=== PATIENT | female | born 1950 | race Caucasian/White ===

== ENCOUNTER 2021-02-16 06:40 | Day surgery (SDC) | payer MEDICARE ==
[2021-02-09 16:21] LABS: BASOPHILS % (AUTO) 0.4 % (0-1); EOSINOPHILS % (AUTO) 0.6 % (0-6); LYMPHOCYTES # (AUTO) 1.7 X10'3 (1.1-4.8); LYMPHOCYTES % (AUTO) 49.2 % (21-51); MEAN CORPUSCULAR HGB CONC 34.9 g/dL (33.0-36.5); MEAN PLATELET VOLUME 7.3 FL (7.4-10.4); MONOCYTES # (AUTO) 0.3 X10'3 (0-0.9); NEUTROPHILS # (AUTO) 1.4 X10'3 (1.8-7.7); NEUTROPHILS % (AUTO) 40.8 % (42-75); PRE OP HEMATOCRIT 34.5 % (35.0-45.0); PRE OP PLATELET COUNT 193 X10'3 (140-440); RED BLOOD COUNT 3.25 X10'6 (4.20-5.60); RED CELL DISTRIBUTION WIDTH 11.8 % (11.5-14.5)
[2021-02-09 16:24] LABS: ALBUMIN 3.7 G/DL (3.4-5.0); ALBUMIN/GLOBULIN RATIO 1.2 (1.1-1.5); ALKALINE PHOSPHATASE 66 IU/L (46-116); BLOOD UREA NITROGEN 17 MG/DL (7-18); BUN/CREATININE RATIO 26.6 (6.6-38.0); CALCIUM 8.6 MG/DL (8.5-10.1); CHLORIDE 107 MMOL/L (99-107); CREATININE 0.64 MG/DL (0.40-0.90); PRE OP ALT 22 U/L (30-65); PRE OP ANION GAP 11 (8-16); PRE OP AST 20 U/L (10-37); PRE OP BILIRUB, TOTAL 0.3 MG/DL (0.0-1.0); PRE OP GLUCOSE 91 MG/DL (70-104); PRE OP SODIUM 143 MMOL/L (135-145); TOTAL PROTEIN 6.9 G/DL (6.4-8.2); eGFR > 90 ML/MIN
[2021-02-09 16:25] LABS: PRE OP POTASSIUM 3.2 MMOL/L (3.4-5.1)
[2021-02-16] VITALS (20 sets, daily range): BP systolic 92–155; BP diastolic 24–137
[~2021-02-16] VITALS: Ht 160 cm; Wt 53.0 kg
[~2021-02-16 06:40] MED LIST: ACET-2971 PO; CELE-85 PO; CLON-369 PO; ECHI80CA PO; ERGO400C PO; ESOM40CA54 PO; FOLI0.4T14 PO; GABA-530 PO; IBUP-24 PO; KRIL1CAP21 PO; PREN-125 PO; SULF500T46 PO; TRAM50TA2 PO; VANCOMYCIN INJ 1000 MG in NORMAL SALINE 250ml IV.SOLN IV ONE; VITA-332; VITA400C67 PO; acetaminophen 325mg tablet PO ONE; cefazolin/dext.iso 2gm/100ml IV ONE; celeCOXIB 100mg capsule PO ONE; famotidine 20mg tablet PO ONE; gabapentin 300mg capsule PO ONE; metoclopramide 5 mg/ml inj IV ONE; oxyCODONE SR 10mg (sust. release) tab -2 tabs (20mg) PO ONE; tranexamic acid 1gm/0.7% sal. 100 ML IV ONE
[2021-02-16] MEDS ORDERED: diphenhydrAMINE 25mg capsule PO PRN ×2 (06:55)
[2021-02-16] MEDS ORDERED: acetaminophen 325mg tablet PO PRN (06:55)
[2021-02-16] MEDS ORDERED: HYDROmorphone inj. 0.5 MG/0.5 ML DISP.SYRIN IV PRN (06:55)
[2021-02-16] MEDS ORDERED: bisacodyl 10mg suppository rectal RC PRN (06:55)
[2021-02-16] MEDS ORDERED: ondansetron/PF 4mg/2ml inj IV PRN ×2 (06:55→10:35)
[2021-02-16] MEDS ORDERED: clonazePAM 0.5mg tablet PO PRN (06:55)
[2021-02-16] MEDS ORDERED: magnesium hydroxide 30ml (MOM) UD suspension PO PRN (06:55)
[2021-02-16] MEDS ORDERED: HYDROcodone/acetaminophen 10/325mg tab PO PRN (06:55)
[2021-02-16] MEDS: ringers solution, lacted 1,000 ML IV SCH ×3 (07:15→18:45)
[2021-02-16] MEDS ORDERED: vancomycin/NS 1 GM ADD-VANTAGE 250 ML IV SCH (08:00)
[2021-02-16 08:05] LABS: ISTAT ANION GAP 12 (8-12); ISTAT BUN 13 mg/dL (7-18); ISTAT CL 104 mmol/L (99-107); ISTAT CREATININE 0.5 mg/dL (0.6-1.1); ISTAT GLUCOSE 111 mg/dL (70-105); ISTAT HGB 11.6 g/dl (12.0-16.0); ISTAT Hct 34 %PCV (35-48); ISTAT IONIZED CALCIUM 1.23 mmol/L (1.03-1.32); ISTAT K 3.8 mmol/L (3.5-5.1); ISTAT NA 142 mmol/L (135-145); ISTAT TOTAL CO2 26 mmol/L (24-32); ISTAT eGFR > 90 ML/MIN
[2021-02-16] MEDS ORDERED: ketorolac trometh. 30mg/ml inj. ONE (08:43)
[2021-02-16] MEDS ORDERED: cloNIDine hcl/PF 100mcg/ml inj ONE (08:44)
[2021-02-16] MEDS ORDERED: epiNEPHrine 1 mg/ml inj ONE (08:44)
[2021-02-16] MEDS ORDERED: vancomycin 1,000mg inj ONE (08:44)
[2021-02-16] MEDS ORDERED: ROPIVAcaine 0.5% (5mg/ml) 30ml vial ONE (08:44)
[2021-02-16] MEDS ORDERED: MIDAZolam 1 MG/ML 5ML VIAL ONE (09:31)
[2021-02-16] MEDS ORDERED: fentaNYL/PF 50MCG/1 ML 2ML syringe ONE (09:31)
[2021-02-16] MEDS ORDERED: propofol inj 20 ML IV ONE (10:34)
[2021-02-16] MEDS ORDERED: proCHLORperazine 10 MG/2 ml inj IV PRN (10:35)
[2021-02-16] MEDS ORDERED: ringers solution, lacted 1,000 ML IV SCH (10:35)
[2021-02-16] MEDS ORDERED: morphine 2 MG/ML inj. syringe IV PRN (10:35)
[2021-02-16] MEDS ORDERED: meperidine/PF 25mg/ml syringe IV PRN ×3 (10:35)
[2021-02-16] MEDS ORDERED: morphine 4 MG/ML inj SYRINge IV PRN (10:35)
--- NOTE | 2021-02-16 10:55 | NUR ---
Received from OR via , accompanied by Anesthesiologist DR FORD and report given by Anesthesiolgist. PT PRESENTS WITH 20G RIGHT QAC, LEFT HIP DRESSING DRY AND INTACT WITH NORM DRESSING, VSS. Addendum: 02/16/21 at 1110 by Angie Jarrett RN, RN Amended: Links added.
[2021-02-16] MEDS ORDERED: NORMAL SALINE IV ONE (12:00)
[2021-02-16] MEDS ORDERED: TRANEXAMIC ACID IV ONE (12:00)
--- NOTE | 2021-02-16 12:11 | NUR ---
RECEIVED REPORT FROM LEENA NICHOLSON IN RECOVERY. PT GOING TO ROOM [id number]
--- NOTE | 2021-02-16 12:25 | NUR ---
PT TO FLOOR VIA HOSPITAL BED WITH [facility]. [facility] ST[facility] AT BEDSIDE TO ACCEPT PT. Addendum: 02/16/21 at 1226 by Angie Jarrett RN RN Amended: Links added.
[2021-02-16] MEDS: HYDROcodone/acetaminophen 10/325mg tab PO PRN ×2 (12:59→19:18)
[2021-02-16] MEDS: potassium cl 20mEq in 1/2 NS 1,000 ML IV SCH ×3 (14:55→22:55)
[2021-02-16] MEDS: HYDROmorphone 1 mg/ml syringe IV PRN ×2 (15:04→21:09)
[2021-02-16] MEDS: ceFAZolin/D5W- 1GM premix 50 ML IV SCH (16:18)
[2021-02-16] MEDS: gabapentin 100mg capsule PO SCH (16:18)
[2021-02-16] MEDS: multivitamins, therapeutics tablet PO SCH (18:00)
[2021-02-16] MEDS: aspirin 325mg tablet PO SCH (18:00)
--- NOTE | 2021-02-16 18:52 | NUR ---
Problems reprioritized. Patient report given, questions answered & plan of care reviewed with LEENA SOTO.
[2021-02-16] MEDS: ascorbic acid 500mg tablet PO SCH (19:17)
[2021-02-16] MEDS: sulfaSALAZINE 500 MG tablet PO SCH (19:21)
--- NOTE | 2021-02-16 19:36 | NUR ---
pt refusing knee brace at this time. "I'm in too much pain, i have to bend my knee." placed pillow b/w legs to prevent crossing when sleeping. will retry when pain controlled
[2021-02-16] MEDS ORDERED: sennosides 8.6mg tablet PO SCH (21:00)
[2021-02-17] MEDS ORDERED: vancomycin/NS 1 GM ADD-VANTAGE 250 ML IV ONE (00:10)
[2021-02-17] MEDS: HYDROcodone/acetaminophen 10/325mg tab PO PRN ×3 (00:15→09:05)
[2021-02-17] MEDS: gabapentin 100mg capsule PO SCH ×2 (00:15→09:03)
[2021-02-17] MEDS: ceFAZolin/D5W- 1GM premix 50 ML IV SCH (00:15)
[2021-02-17 02:00] VITALS: BP 136/37
--- NOTE | 2021-02-17 05:47 | NUR ---
pt finally agreed to have knee brace on. she will ask MD if she can keep it off.
[2021-02-17 06:08] LABS: BASOPHILS % (AUTO) 0.3 % (0-1); EOSINOPHILS % (AUTO) 0.6 % (0-6); HEMATOCRIT 30.4 % (35.0-45.0); HEMOGLOBIN 10.5 g/dl (12.0-16.0); LYMPHOCYTES % (AUTO) 26.1 % (21-51); MEAN CORPUSCULAR HEMOGLOBIN 36.8 PG (27.0-31.0); MEAN CORPUSCULAR HGB CONC 34.7 g/dL (33.0-36.5); MEAN PLATELET VOLUME 7.7 FL (7.4-10.4); MONOCYTES # (AUTO) 0.3 X10'3 (0-0.9); MONOCYTES % (AUTO) 9.1 % (2-12); NEUTROPHILS # (AUTO) 2.4 X10'3 (1.8-7.7); NEUTROPHILS % (AUTO) 63.9 % (42-75); PLATELET COUNT 176 X10'3 (140-440); RED BLOOD COUNT 2.86 X10'6 (4.20-5.60); RED CELL DISTRIBUTION WIDTH 11.9 % (11.5-14.5); WHITE BLOOD COUNT 3.8 X10'3 (4.5-11.0)
[2021-02-17 06:26] LABS: ANION GAP 7 (8-16); CHLORIDE 108 MMOL/L (99-107); POTASSIUM 3.6 MMOL/L (3.5-5.1); SODIUM 140 MMOL/L (135-145); TOTAL CARBON DIOXIDE 24.9 MMOL/L (24-32)
--- NOTE | 2021-02-17 06:31 | NUR ---
reported to days. noted pt painful, not excited about getting up with PT. madelyn may not be working for her. noted to day RN to monitor effectivness
--- NOTE | 2021-02-17 06:34 | NUR ---
Patient in room ORTHO 4024. I have received report from Arya STERN and had the opportunity to ask questions and assume patient care.
[2021-02-17] MEDS: potassium cl 20mEq in 1/2 NS 1,000 ML IV SCH (06:55)
[2021-02-17 06:59] VITALS: BP 138/47
[2021-02-17] MEDS ORDERED: pantoprazole 40mg Tablet.DR PO SCH (07:30)
[2021-02-17] MEDS: aspirin 325mg tablet PO SCH (09:03)
[2021-02-17] MEDS: ascorbic acid 500mg tablet PO SCH (09:04)
[2021-02-17] MEDS: multivitamins, therapeutics tablet PO SCH (09:04)
[2021-02-17] MEDS: sulfaSALAZINE 500 MG tablet PO SCH (09:06)
[2021-02-17 10:50] VITALS: BP 159/51
--- NOTE | 2021-02-17 11:49 | NUR ---
Patient discharged to home, 18 gauge IV removed from right antecubital, no s/s of phlebitis and cannula intact. DC instructions given to both patient and significant other. Discharged in wheelchair to private vehicle with no complications.
[2021-02-17] MEDS ORDERED: celeCOXIB 100mg capsule PO SCH (20:00)
== END 2021-02-17 11:30 | disposition home or self-care (01) ==
LOC: PAS 06:40 → ORTHO 4S 06:52 → PAS 02-17 11:30
PROVIDERS: ATTEND Orthopaedic Surgery
DX: M16.12 Unilateral primary osteoarthritis, left hip (principal); G43.909 Migraine, unspecified, not intractable, without status migrainosus; F41.9 Anxiety disorder, unspecified; Z20.822 Contact with and (suspected) exposure to COVID-19; Z86.73 Personal history of transient ischemic attack (TIA), and cerebral infarction without residual deficits; Z87.891 Personal history of nicotine dependence; Z72.89 Other problems related to lifestyle; Z79.899 Other long term (current) drug therapy
CPT/HCPCS: 27130; 36415; 72170; 80047; 80051; 80053; 82948; 85025; 86885; 86900; 86901; 87081; 97110; 97116; 97161; 97530; C1776; J0171; J0690; J0735; J1170; J1885; J2250; J2704; J2765; J3010; J3370; J7120; U0003; U0005; A7000; G0378; J2795; J3480

== ENCOUNTER 2022-07-22 07:28 | Emergency (ER) | payer MEDICARE ==
[~2022-07-22] VITALS: Ht 160 cm; Wt 62.0 kg
[~2022-07-22 07:28] MED LIST changes: -ACET-2971 PO; -IBUP-24 PO; -TRAM50TA2 PO; -VANCOMYCIN INJ 1000 MG in NORMAL SALINE 250ml IV.SOLN IV ONE; -acetaminophen 325mg tablet PO ONE; -cefazolin/dext.iso 2gm/100ml IV ONE; -celeCOXIB 100mg capsule PO ONE; -famotidine 20mg tablet PO ONE; -gabapentin 300mg capsule PO ONE; -metoclopramide 5 mg/ml inj IV ONE; -oxyCODONE SR 10mg (sust. release) tab -2 tabs (20mg) PO ONE; -tranexamic acid 1gm/0.7% sal. 100 ML IV ONE
[2022-07-22 08:21] VITALS: BP 149/77
[2022-07-22] MEDS ORDERED: ondansetron 4mg rapidly disintigrating tab PO ONE (08:45)
[2022-07-22] MEDS ORDERED: acetaminophen 325mg tablet PO ONE (08:45)
[2022-07-22] MEDS ORDERED: HYDROcodone/acetaminophen 10/325mg tab PO ONE (08:45)
[2022-07-22] MEDS ORDERED: BUPIVAcaine/PF 2.5 mg/ml (0.25%) 30ml vial IJ ONE (08:50)
[2022-07-22] MEDS ORDERED: HYDR-3965 PO ×3 (09:40→15:23)
== END 2022-07-22 10:27 | disposition home or self-care (01) ==
LOC: ER 07:29
DX: S42.302A Unspecified fracture of shaft of humerus, left arm, initial encounter for closed fracture (principal); M25.512 Pain in left shoulder; Z79.899 Other long term (current) drug therapy; W19.XXXA Unspecified fall, initial encounter; Y93.89 Activity, other specified; Y92.89 Other specified places as the place of occurrence of the external cause; Y99.8 Other external cause status
CPT/HCPCS: 29105; 73060; 73090; 99284; L3650; A4565

== ENCOUNTER 2022-07-27 08:49 | Emergency (ER) | payer MEDICARE ==
[~2022-07-27] VITALS: Ht 161.3 cm; Wt 63.2 kg
[~2022-07-27 08:49] MED LIST changes: +HYDR-3965 PO
[2022-07-27 14:15] VITALS: BP 161/80
== END 2022-07-27 14:17 | disposition home or self-care (01) ==
LOC: ER 08:49
DX: S42.202D Unspecified fracture of upper end of left humerus, subsequent encounter for fracture with routine healing (principal); M25.512 Pain in left shoulder; Z79.899 Other long term (current) drug therapy; W19.XXXD Unspecified fall, subsequent encounter
CPT/HCPCS: 71045; 73060; 99284

== ENCOUNTER 2023-09-13 07:52 | Inpatient (IN) | payer MEDICARE ==
[~2023-09-13] VITALS: Ht 160 cm; Wt 56.0 kg
[~2023-09-13 07:52] MED LIST changes: +ASPI-612 PO; +CALC500T63 PO; +CELE-127 PO; -CELE-85 PO; +CHOL100053 PO; -ECHI80CA PO; -ERGO400C PO; -GABA-530 PO; -HYDR-3965 PO; +OXYC-145 PO; +ROSU10TA28 PO; -SULF500T46 PO; -VITA-332; -VITA400C67 PO; +[UNRECOGNIZED DRUG - CODE] PO
[2023-09-13] MEDS ORDERED: ketorolac trometh. 30mg/ml inj. IV ONE (10:15)
[2023-09-13] MEDS ORDERED: dexamethasone sod phosphate 10mg/ml inj IM STA (10:15)
[2023-09-13] MEDS ORDERED: cyclobenzaprine 10mg tablet PO ONE (10:15)
[2023-09-13] MEDS ORDERED: HYDROcodone/acetaminophen 10/325mg tab PO ONE (10:15)
[2023-09-13] MEDS ORDERED: ketorolac trometh. 30mg/ml inj. IM ONE (10:35)
[2023-09-13 13:12] LABS: BASOPHILS % (AUTO) 0.4 % (0-1); EOSINOPHILS % (AUTO) 0.2 % (0-6); HEMATOCRIT 37.2 % (35.0-45.0); HEMOGLOBIN 12.8 g/dl (12.0-16.0); LYMPHOCYTES # (AUTO) 0.5 X10'3 (1.1-4.8); MEAN CORPUSCULAR HEMOGLOBIN 36.2 PG (27.0-31.0); MEAN CORPUSCULAR HGB CONC 34.6 g/dL (33.0-36.5); MEAN CORPUSCULAR VOLUME 104.8 FL (78-98); MEAN PLATELET VOLUME 7.1 FL (7.4-10.4); MONOCYTES # (AUTO) 0.2 X10'3 (0-0.9); MONOCYTES % (AUTO) 3.8 % (2-12); NEUTROPHILS # (AUTO) 3.8 X10'3 (1.8-7.7); NEUTROPHILS % (AUTO) 84.6 % (42-75); PLATELET COUNT 197 X10'3 (140-440); RED BLOOD COUNT 3.55 X10'6 (4.20-5.60); RED CELL DISTRIBUTION WIDTH 11.8 % (11.5-14.5); WHITE BLOOD COUNT 4.5 X10'3 (4.5-11.0)
[2023-09-13] MEDS ORDERED: morphine 2 MG/ML inj. syringe IV PRN (13:15)
[2023-09-13] MEDS ORDERED: mag hydrox/Alum hydrox/simeth 30ml oral suspension PO PRN (13:15)
[2023-09-13] MEDS ORDERED: magnesium Cl slow-release 64mg tablet PO PRN (13:15)
[2023-09-13] MEDS ORDERED: ondansetron/PF 4mg/2ml inj IV PRN (13:15)
[2023-09-13] MEDS ORDERED: potassium Cl 40MEQ/1/2NS 520ml 520 ML IV PRN (13:15)
[2023-09-13] MEDS ORDERED: magnesium 4gm in 100ml NS 100 ML IV PRN (13:15)
[2023-09-13] MEDS ORDERED: potassium Cl 20 mEq SR tablet PO PRN (13:15)
[2023-09-13] MEDS ORDERED: magnesium hydroxide 30ml (MOM) UD suspension PO PRN (13:15)
[2023-09-13] MEDS ORDERED: magnesium 2GM in 50ml NS 50 ML IV PRN (13:15)
[2023-09-13] MEDS ORDERED: acetaminophen 325mg tablet PO PRN (13:15)
[2023-09-13 13:38] LABS: ALANINE AMINOTRANSFERASE 20 U/L (12-78); ALBUMIN 3.3 G/DL (3.4-5.0); ALBUMIN/GLOBULIN RATIO 0.8 (1.1-1.5); ALKALINE PHOSPHATASE 96 IU/L (46-116); ANION GAP 13 (8-16); ASPARTATE AMINO TRANSFERASE 21 U/L (10-37); BILIRUBIN,TOTAL 0.6 MG/DL (0.1-1.0); BLOOD UREA NITROGEN 10 MG/DL (7-18); BUN/CREATININE RATIO 17.9 (10.0-20.0); CALCIUM 9.2 MG/DL (8.5-10.1); CHLORIDE 103 MMOL/L (99-107); CREATININE 0.56 MG/DL (0.40-0.90); GLUCOSE 111 MG/DL (70-104); POTASSIUM 3.2 MMOL/L (3.5-5.1); SODIUM 139 MMOL/L (135-145); TOTAL CARBON DIOXIDE 23.2 MMOL/L (24-32); TOTAL PROTEIN 7.4 G/DL (6.4-8.2); eCRCL 76 ML/MIN; eGFR > 90 ML/MIN
[2023-09-13 14:56] LABS: MAGNESIUM 1.7 MG/DL (1.5-2.4); THYROID STIMULATING HORMONE 0.71 ulU/ml (0.34-4.50)
[2023-09-13] MEDS: potassium Cl 20 mEq SR tablet PO PRN (16:55)
[2023-09-13 17:00] VITALS: BP 163/74; PULSE 91; RESP 16; TEMP 97.5; O2SAT 96
[2023-09-13 17:06] VITALS: RESP 16; O2SAT 96
[2023-09-13] MEDS: docusate sod 100mg capsule PO SCH (19:36)
[2023-09-13] MEDS: HYDROcodone/acetaminophen 10/325mg tab PO PRN (19:38)
[2023-09-13] MEDS: heparin, porcine 5000 units/ml vial SQ SCH (19:39)
[2023-09-13] MEDS: K and/or MAG REPLACEMENT MC SCH (19:44)
[2023-09-13 19:59] VITALS: RESP 16; O2SAT 96
[2023-09-14] MEDS: potassium Cl 20 mEq SR tablet PO PRN (00:14)
[2023-09-14] MEDS: HYDROcodone/acetaminophen 10/325mg tab PO PRN ×4 (00:14→19:54)
[2023-09-14 06:00] VITALS: BP 178/78; PULSE 69; RESP 12; TEMP 97.6; O2SAT 100
[2023-09-14 06:07] LABS: BASOPHILS % (AUTO) 0.2 % (0-1); EOSINOPHILS % (AUTO) 0.1 % (0-6); HEMATOCRIT 39.6 % (35.0-45.0); HEMOGLOBIN 13.4 g/dl (12.0-16.0); LYMPHOCYTES # (AUTO) 1.3 X10'3 (1.1-4.8); MEAN CORPUSCULAR HEMOGLOBIN 35.8 PG (27.0-31.0); MEAN CORPUSCULAR VOLUME 105.3 FL (78-98); MEAN PLATELET VOLUME 8.1 FL (7.4-10.4); MONOCYTES # (AUTO) 0.5 X10'3 (0-0.9); MONOCYTES % (AUTO) 10.7 % (2-12); NEUTROPHILS # (AUTO) 2.5 X10'3 (1.8-7.7); PLATELET COUNT 229 X10'3 (140-440); RED BLOOD COUNT 3.76 X10'6 (4.20-5.60); WHITE BLOOD COUNT 4.3 X10'3 (4.5-11.0)
[2023-09-14 06:24] LABS: ALANINE AMINOTRANSFERASE 20 U/L (12-78); ALBUMIN 3.3 G/DL (3.4-5.0); ALBUMIN/GLOBULIN RATIO 0.9 (1.1-1.5); ALKALINE PHOSPHATASE 103 IU/L (46-116); ANION GAP 12 (8-16); ASPARTATE AMINO TRANSFERASE 19 U/L (10-37); BILIRUBIN,TOTAL 0.5 MG/DL (0.1-1.0); BLOOD UREA NITROGEN 14 MG/DL (7-18); BUN/CREATININE RATIO 24.1 (10.0-20.0); CALCIUM 9.4 MG/DL (8.5-10.1); CHLORIDE 102 MMOL/L (99-107); CREATININE 0.58 MG/DL (0.40-0.90); GLUCOSE 105 MG/DL (70-104); MAGNESIUM 1.9 MG/DL (1.5-2.4); POTASSIUM 3.6 MMOL/L (3.5-5.1); SODIUM 139 MMOL/L (135-145); TOTAL CARBON DIOXIDE 25.5 MMOL/L (24-32); TOTAL PROTEIN 7.1 G/DL (6.4-8.2); eCRCL 74 ML/MIN; eGFR > 90 ML/MIN
[2023-09-14] MEDS: K and/or MAG REPLACEMENT MC SCH ×2 (07:48→19:56)
[2023-09-14] MEDS: heparin, porcine 5000 units/ml vial SQ SCH ×2 (07:59→19:52)
[2023-09-14] MEDS: docusate sod 100mg capsule PO SCH ×2 (07:59→19:54)
[2023-09-14 10:00] VITALS: BP 147/65; PULSE 87; RESP 16; TEMP 98; O2SAT 97
[2023-09-14] MEDS ORDERED: baclofen 10mg tablet PO PRN (12:40)
[2023-09-14 18:00] VITALS: BP_SYST 128; BP_SYST 147; BP_DIAS 62; BP_DIAS 71; PULSE 74; RESP 16; RESP 17; TEMP 97.2; TEMP 98.7; O2SAT 93; O2SAT 96
[2023-09-15] MEDS: HYDROcodone/acetaminophen 10/325mg tab PO PRN ×2 (04:30→12:14)
[2023-09-15 06:00] VITALS: BP 147/67; PULSE 74; RESP 17; TEMP 97.2; O2SAT 96
[2023-09-15 06:37] LABS: BASOPHILS % (AUTO) 0.4 % (0-1); EOSINOPHILS # (AUTO) 0.1 X10'3 (0-0.9); EOSINOPHILS % (AUTO) 2.3 % (0-6); HEMATOCRIT 37.3 % (35.0-45.0); HEMOGLOBIN 12.8 g/dl (12.0-16.0); LYMPHOCYTES # (AUTO) 1.2 X10'3 (1.1-4.8); LYMPHOCYTES % (AUTO) 29.4 % (21-51); MEAN CORPUSCULAR HEMOGLOBIN 36.3 PG (27.0-31.0); MEAN CORPUSCULAR HGB CONC 34.3 g/dL (33.0-36.5); MEAN CORPUSCULAR VOLUME 105.7 FL (78-98); MEAN PLATELET VOLUME 7.6 FL (7.4-10.4); MONOCYTES # (AUTO) 0.4 X10'3 (0-0.9); MONOCYTES % (AUTO) 9.2 % (2-12); NEUTROPHILS # (AUTO) 2.4 X10'3 (1.8-7.7); NEUTROPHILS % (AUTO) 58.7 % (42-75); PLATELET COUNT 206 X10'3 (140-440); RED BLOOD COUNT 3.53 X10'6 (4.20-5.60); RED CELL DISTRIBUTION WIDTH 11.8 % (11.5-14.5); WHITE BLOOD COUNT 4.1 X10'3 (4.5-11.0)
[2023-09-15 07:08] LABS: ALANINE AMINOTRANSFERASE 16 U/L (12-78); ALBUMIN 2.9 G/DL (3.4-5.0); ALBUMIN/GLOBULIN RATIO 0.8 (1.1-1.5); ALKALINE PHOSPHATASE 92 IU/L (46-116); ANION GAP 11 (8-16); ASPARTATE AMINO TRANSFERASE 20 U/L (10-37); BILIRUBIN,TOTAL 0.4 MG/DL (0.1-1.0); BLOOD UREA NITROGEN 11 MG/DL (7-18); BUN/CREATININE RATIO 20.4 (10.0-20.0); CALCIUM 8.9 MG/DL (8.5-10.1); CHLORIDE 104 MMOL/L (99-107); CREATININE 0.54 MG/DL (0.40-0.90); GLUCOSE 93 MG/DL (70-104); MAGNESIUM 1.7 MG/DL (1.5-2.4); POTASSIUM 3.8 MMOL/L (3.5-5.1); SODIUM 140 MMOL/L (135-145); TOTAL CARBON DIOXIDE 25.5 MMOL/L (24-32); TOTAL PROTEIN 6.5 G/DL (6.4-8.2); eCRCL 79 ML/MIN; eGFR > 90 ML/MIN
[2023-09-15] MEDS: heparin, porcine 5000 units/ml vial SQ SCH (07:27)
[2023-09-15] MEDS: K and/or MAG REPLACEMENT MC SCH (07:30)
[2023-09-15] MEDS: docusate sod 100mg capsule PO SCH (07:34)
[2023-09-15 08:00] VITALS: RESP 16; O2SAT 97
[2023-09-15] MEDS ORDERED: HYDR-3965 PO (11:20)
== END 2023-09-15 15:30 | disposition home health service (06) | DRG 552 ==
LOC: ER 07:52 → ED HOLD 13:16 → EDBEDREQ 15:30 → ORTHO 4S 16:35
PROVIDERS: ADMIT Internal Medicine; ATTEND Internal Medicine
DX: M51.37 Other intervertebral disc degeneration, lumbosacral region (principal); M47.816 Spondylosis without myelopathy or radiculopathy, lumbar region; E87.6 Hypokalemia; Z87.891 Personal history of nicotine dependence; Z79.82 Long term (current) use of aspirin; Z79.899 Other long term (current) drug therapy
CPT/HCPCS: 36415; 72100; 72131; 80053; 83735; 84443; 85025; 87081; 93306; 97116; 97161; 97530; 99285; G0378; J1100; J1644; J1885; J2270